=== PATIENT | male | born 1965 | race Two or more races ===

== ENCOUNTER 2025-06-14 08:19 | Emergency (ER) | payer OTHER ==
[~2025-06-14] VITALS: Ht 167.6 cm; Wt 95.3 kg
[2025-06-14] MEDS ORDERED: BACLOFEN20 MG (08:55)
[2025-06-14] MEDS ORDERED: CEFTRIAXONE SODIUM 1,000 MG VIAL IM ONE (09:30)
[2025-06-14] MEDS ORDERED: KETOROLAC TROMETHAMINE 60 MG VIAL IM ONE ×2 (09:30→09:42)
[2025-06-14] MEDS ORDERED: LIDOCAINE HCL 1% 10ML VIAL ONE (09:42)
[2025-06-14] MEDS ORDERED: CEFTRIAXONE SODIUM 1,000 MG VIAL ONE (09:42)
[2025-06-14 10:19] LABS: BASO % 0.7 % (0.1-1.2); EOS # 0.15 (0.04-0.54); EOS % 1.8 % (0.7-7.0); LYMPH # 2.04 (1.18-3.74); LYMPH % 24.7 % (19.3-53.1); MEAN PLATELET VOLUME 10.20 fl (9.4-12.4); MONO # 0.64 (0.24-0.82); MONO % 7.7 % (4.7-12.5); NEUT # 5.36 (1.56-6.13); NEUT % 64.9 % (34.0-71.1); RED CELL DISTRIBUTION WIDTH 12.7 % (11.6-14.4)
[2025-06-14 10:28] LABS: URINE APPEARANCE Clear; URINE BILIRRUBIN Negative (NEGATIVE); URINE BLOOD Negative; URINE COLOR Yellow; URINE GLUCOSE Negative (NEGATIVE); URINE KETONE Negative (NEGATIVE); URINE LEUKOCYTE Negative; URINE NITRATE Negative; URINE PROTEIN Negative (NEGATIVE); URINE UROBILINOGEN 0.2 E.U./dl
[2025-06-14 10:30] LABS: URINE WBC 1.9 uL (0.0-23.2)
[2025-06-14 10:35] LABS: URINE BACTERIA 2.2 uL (0.0-1933); URINE CAST 0.00 uL (0.0-1.40); URINE EPITHELIAL CELLS 0.0 uL (0.0-38.8); URINE RBC 1.4 uL (0.0-20.8)
[2025-06-14 10:51] LABS: INR 1.01
[2025-06-14 10:53] LABS: ALT/SGPT 45.0 U/L (12-78); AST/SGOT 31.0 U/L (15-37); BILIRUBIN TOTAL 0.7 mg/dL (0.3-1.2); BUN CREA RATIO 11.0 (7.0-25.0); CREATININE SERUM 0.88 mg/dL (0.70-1.30); GFR 88.64; GLOBULINA 4.3 G/DL (2.4-3.5); GLUCOSE FASTING 104.0 mg/dL (65-100); OSMOLALITY SERUM 281.0 MOSM/KG (275-295)
[2025-06-14] MEDS ORDERED: NORFLEX100MG PO (13:43)
== END 2025-06-14 14:05 | disposition home or self-care (01) ==
LOC: ER 08:20
PROVIDERS: General Practice
DX: I86.1 Scrotal varices (principal); Z88.5 Allergy status to narcotic agent
CPT/HCPCS: 36415; 76870; 96372; 99284; J0696; J1885